=== PATIENT | female | born 1985 | race African-American/Black ===

== ENCOUNTER 2017-08-12 09:43 | Emergency (ER) | payer MEDICAID, OTHER ==
[~2017-08-12] VITALS: Ht 160 cm; Wt 90.7 kg
[2017-08-12 10:30] LABS: Basophils # (auto) 0.1 uL; Eosinophils # (auto) 0.1 uL; Eosinophils % (auto) 1.3 % (0.0-7.0); Hemoglobin 14.5 g/dL (12.2-16.2); Lymphocytes # (auto) 2.5 uL; Lymphocytes % (auto) 42.1 % (10.0-50.0); Mean Corpuscular Hemoglobin 28.5 pg (28.0-32.0); Mean Corpuscular Hgb Conc. 33.1 g/dL (32.0-36.0); Mean Corpuscular Volume 86.3 fL (80.0-100.0); Monocytes # (auto) 0.2 uL; Neutrophils # (auto) 3.1 uL; Neutrophils % (auto) 51.6 % (37.0-80.0); Nucleated Red Blood Cells % 0.1 %; Platelet Count (auto) 346 10^3/uL (140-450); Red Blood Cells 5.09 10^6/uL (4.0-5.20); Red Cell Distribution Width 14.6 % (11.8-14.3)
[2017-08-12 10:53] LABS: Albumin 3.9 g/dL (3.4-5.0); BUN/Creatinine Ratio 11.4; Bilirubin, Total 0.4 mg/dL (0.2-1.0); Calcium 9.1 mg/dL (8.5-10.1); Potassium 3.6 mmol/L (3.5-5.1); Total Protein 8.3 g/dL (6.4-8.2)
[2017-08-12 12:38] VITALS: BP 91/70
== END 2017-08-12 12:43 | disposition home or self-care (01) ==
LOC: ER 09:43
DX: R10.9 Unspecified abdominal pain (principal)
CPT/HCPCS: 36415; 76856; 80053; 85025

== ENCOUNTER 2018-02-05 10:21 | Emergency (ER) | payer MEDICAID, OTHER ==
[~2018-02-05] VITALS: Ht 162.6 cm; Wt 93.0 kg
[2018-02-05 10:55] VITALS: BP 146/95
== END 2018-02-05 13:13 | disposition home or self-care (01) ==
LOC: ER 10:21
DX: N61.0 Mastitis without abscess (principal)
CPT/HCPCS: 76642

== ENCOUNTER 2018-03-26 18:21 | Emergency (ER) | payer MEDICAID, OTHER ==
[~2018-03-26] VITALS: Ht 162.6 cm; Wt 90.7 kg
[2018-03-26 20:05] LABS: Basophils # (auto) 0 uL; Basophils % (auto) 0.2 % (0.0-2.0); Eosinophils # (auto) 0.1 uL; Eosinophils % (auto) 1.1 % (0.0-7.0); Hematocrit 41.7 % (36.0-46.0); Hemoglobin 13.3 g/dL (12.2-16.2); Lymphocytes # (auto) 3.7 uL; Lymphocytes % (auto) 42.5 % (10.0-50.0); Mean Corpuscular Hemoglobin 27.9 pg (28.0-32.0); Mean Corpuscular Hgb Conc. 31.9 g/dL (32.0-36.0); Mean Corpuscular Volume 87.4 fL (80.0-100.0); Monocytes # (auto) 0.5 uL; Neutrophils # (auto) 4.4 uL; Neutrophils % (auto) 50.2 % (37.0-80.0); Nucleated Red Blood Cells % 0.1 %; Platelet Count (auto) 327 10^3/uL (140-450); Red Blood Cells 4.77 10^6/uL (4.0-5.20); Red Cell Distribution Width 14.5 % (11.8-14.3); White Blood Cell 8.8 10^3/uL (4.4-10.8)
[2018-03-26 20:07] LABS: BUN/Creatinine Ratio 7.7; Calcium 8.8 mg/dL (8.5-10.1)
[2018-03-26 20:19] VITALS: BP 146/88
[2018-03-26] MEDS ORDERED: cefTRIAXone SOD 1,000 MG VL IM ONE (20:30)
== END 2018-03-26 21:07 | disposition home or self-care (01) ==
LOC: ER 18:21
DX: N64.52 Nipple discharge (principal)
CPT/HCPCS: 36415; 76604; 80048; 85025; 96372; 99284; J0696

== ENCOUNTER → 2020-08-23 | Emergency (ER) | payer MEDICAID, OTHER ==
[~2020-08-23] VITALS: Ht 160 cm; Wt 99.8 kg
[~2020-08-23] MED LIST: KETOROLAC TROMETH 30 MG/ML 1ML VIAL IV ONE; SODIUM CHLORIDE 0.9% 1,000 ML IV ONE
[2020-08-23 15:39] LABS: Basophils # (auto) 0.1 10 ^3/uL (0-0.2); Basophils % (auto) 0.9 % (0.0-2.0); Eosinophils # (auto) 0.1 10 ^3/uL (0-0.8); Eosinophils % (auto) 0.6 % (0.0-7.0); Hematocrit 40.8 % (36.0-46.0); Lymphocytes # (auto) 2.8 10 ^3/uL (0.4-5.4); Lymphocytes % (auto) 30.9 % (10.0-50.0); Mean Corpuscular Hemoglobin 30.1 pg (28.0-32.0); Mean Corpuscular Hgb Conc. 34.4 g/dL (32.0-36.0); Mean Corpuscular Volume 87.6 fL (80.0-100.0); Monocytes # (auto) 0.7 10 ^3/uL (0-1.3); Monocytes % (auto) 8.3 % (0.0-12.0); Neutrophils # (auto) 5.4 10 ^3/uL (1.6-8.6); Neutrophils % (auto) 59.3 % (37.0-80.0); Nucleated Red Blood Cells % 0.1 %; Platelet Count (auto) 304 10^3/uL (140-450); Red Blood Cells 4.65 10^6/uL (4.0-5.20); Red Cell Distribution Width 14.9 % (11.8-14.3); White Blood Cell 9.1 10^3/uL (4.4-10.8)
[2020-08-23 16:00] LABS: Albumin 3.9 g/dL (3.4-5.0); Potassium 3.9 mmol/L (3.5-5.1)
[2020-08-23 16:04] LABS: BUN/Creatinine Ratio 9.2; Bilirubin, Total 0.6 mg/dL (0.2-1.0); Total Protein 8.3 g/dL (6.4-8.2)
[2020-08-23 18:16] LABS: Urine Bacteria NONE SEEN /hpf (None Seen); Urine Blood Negative /uL (Negative); Urine Mucus FEW (None Seen); Urine Specific Gravity 1.024 (1.001-1.035); Urine WBC 2 /hpf (0 - 5)
[2020-08-23 18:30] VITALS: BP 136/84
== END | disposition home or self-care (01) ==
LOC: ER 15:21
DX: N83.202 Unspecified ovarian cyst, left side (principal)
CPT/HCPCS: 36415; 74176; 76830; 76856; 80053; 81001; 85025; 96361; 96374; 99285; J1885; J7030

== ENCOUNTER 2020-12-17 12:51 | Emergency (ER) | payer MEDICAID ==
[~2020-12-17] VITALS: Ht 162.6 cm; Wt 86.2 kg
[2020-12-17 13:06] VITALS: BP 132/78
[2020-12-17 13:57] LABS: Basophils # (auto) 0 10 ^3/uL (0-0.2); Basophils % (auto) 0.4 % (0.0-2.0); Eosinophils # (auto) 0.1 10 ^3/uL (0-0.8); Eosinophils % (auto) 0.6 % (0.0-7.0); Hematocrit 42.9 % (36.0-46.0); Lymphocytes # (auto) 2.9 10 ^3/uL (0.4-5.4); Lymphocytes % (auto) 36.4 % (10.0-50.0); Mean Corpuscular Hemoglobin 27.4 pg (28.0-32.0); Mean Corpuscular Hgb Conc. 32.6 g/dL (32.0-36.0); Mean Corpuscular Volume 84.3 fL (80.0-100.0); Monocytes # (auto) 0.7 10 ^3/uL (0-1.3); Monocytes % (auto) 8.8 % (0.0-12.0); Neutrophils # (auto) 4.2 10 ^3/uL (1.6-8.6); Neutrophils % (auto) 53.8 % (37.0-80.0); Red Blood Cells 5.09 10^6/uL (4.0-5.20); Red Cell Distribution Width 15.1 % (11.8-14.3); White Blood Cell 7.9 10^3/uL (4.4-10.8)
[2020-12-17 14:18] LABS: Potassium 3.2 mmol/L (3.5-5.1)
[2020-12-17 14:23] LABS: Albumin 3.9 g/dL (3.4-5.0); BUN/Creatinine Ratio 9.4; Calcium 9.6 mg/dL (8.5-10.1)
[2020-12-17 14:25] LABS: Bilirubin, Total 0.5 mg/dL (0.2-1.0); Total Protein 8.9 g/dL (6.4-8.2)
== END 2020-12-17 20:53 | disposition left against medical advice (07) ==
LOC: ER 12:51
DX: R10.32 Left lower quadrant pain (principal); R11.0 Nausea; Z53.21 Procedure and treatment not carried out due to patient leaving prior to being seen by health care provider
CPT/HCPCS: 36415; 80053; 84702; 85025

== ENCOUNTER 2022-01-31 17:07 | Emergency (ER) | payer MEDICAID ==
[~2022-01-31] VITALS: Ht 165.1 cm; Wt 81.0 kg
[2022-01-31 19:03] VITALS: BP 156/93
[2022-01-31] MEDS ORDERED: CEPH-510 PO (19:38)
== END 2022-01-31 19:50 | disposition home or self-care (01) ==
LOC: ER 17:07
DX: N63.41 Unspecified lump in right breast, subareolar (principal); Z98.51 Tubal ligation status
CPT/HCPCS: 76642

== ENCOUNTER 2022-12-15 12:29 | Inpatient (IN) | payer MEDICAID ==
[~2022-12-15] VITALS: Ht 162.6 cm; Wt 105.3 kg
[~2022-12-15 12:29] MED LIST changes: +CEPH-510 PO; -KETOROLAC TROMETH 30 MG/ML 1ML VIAL IV ONE; -SODIUM CHLORIDE 0.9% 1,000 ML IV ONE
[2022-12-15 13:30] LABS: Basophils # (auto) 0 10 ^3/uL (0-0.2); Basophils % (auto) 0.4 % (0.0-2.0); Eosinophils # (auto) 0.2 10 ^3/uL (0-0.8); Eosinophils % (auto) 1.4 % (0.0-7.0); Hematocrit 40.3 % (36.0-46.0); Lymphocytes # (auto) 2.7 10 ^3/uL (0.4-5.4); Lymphocytes % (auto) 23.7 % (10.0-50.0); Mean Corpuscular Hemoglobin 28.2 pg (28.0-32.0); Mean Corpuscular Hgb Conc. 32.3 g/dL (32.0-36.0); Mean Corpuscular Volume 87.3 fL (80.0-100.0); Monocytes # (auto) 0.7 10 ^3/uL (0-1.3); Neutrophils # (auto) 7.8 10 ^3/uL (1.6-8.6); Neutrophils % (auto) 68.5 % (37.0-80.0); Red Blood Cells 4.62 10^6/uL (4.0-5.20); Red Cell Distribution Width 13.7 % (11.8-14.3); White Blood Cell 11.4 10^3/uL (4.4-10.8)
[2022-12-15 13:44] LABS: Alanine Aminotransferase 17 U/L (7-40); Albumin 4.4 g/dL (3.2-4.8); Alkaline Phosphatase 97 U/L (46-116); Anion Gap 8.8 (5-15); Aspartate Aminotransferase 14 U/L (13-40); BUN/Creatinine Ratio 9.1 (10.0-20.0); Bilirubin, Total 0.9 mg/dL (0.2-1.0); Blood Urea Nitrogen 7 mg/dL (9-23); Calcium 9.6 mg/dL (8.7-10.4); Carbon Dioxide 26.2 mmol/L (20-30); Chloride 105 mmol/L (98-107); Glucose 96 mg/dL (74-106); Potassium 3.8 mmol/L (3.5-5.1); Sodium 140 mmol/L (136-145); Total Protein 7.4 g/dL (5.7-8.2)
[2022-12-15] MEDS ORDERED: SODIUM CHLORIDE 0.9% 1,000 ML IV ONE (15:00)
[2022-12-15] MEDS ORDERED: VANCOMYCIN 1GM/250ML 250 ML IV ONE (15:00)
[2022-12-15] MEDS ORDERED: ACETAMINOPHEN 325 MG TAB PO PRN (15:15)
[2022-12-15] MEDS ORDERED: ONDANSETRON HCL 4 MG/2 ML VIAL IV PRN (15:15)
[2022-12-15] MEDS ORDERED: DOCUSATE SOD 100 MG CAP PO PRN (15:15)
[2022-12-15] MEDS: HYDROcodone-ACET 5/325MG TAB PO PRN (16:33)
[2022-12-15 16:43] VITALS: PULSE 78; RESP 17; O2SAT 97
[2022-12-15] MEDS ORDERED: ERGO1CAP12 PO (21:17)
[2022-12-15 22:00] VITALS: BP 148/93; PULSE 87; RESP 20; TEMP 98.2; O2SAT 87
[2022-12-15] MEDS: CLINDAMYCIN 600MG IV 50 ML IV SCH (22:01)
[2022-12-15] MEDS: SODIUM CHLOR 0.9% PF (SALINE LOCK) 10ML VIAL/SYR IV SCH (22:02)
[2022-12-15] MEDS: MORPHINE SULFATE INJ 2 MG/ml SYRG IV PRN (22:02)
[2022-12-16] VITALS (7 sets, daily range): BP systolic 126–138; BP diastolic 84–93; PULSE 89–96; RESP 17–18; TEMP 98–99.2; O2SAT 96–100
[2022-12-16] MEDS: CLINDAMYCIN 600MG IV 50 ML IV SCH ×3 (06:01→20:50)
[2022-12-16] MEDS: SODIUM CHLOR 0.9% PF (SALINE LOCK) 10ML VIAL/SYR IV SCH ×3 (06:01→22:01)
[2022-12-16 06:38] LABS: Basophils # (auto) 0 10 ^3/uL (0-0.2); Basophils % (auto) 0.3 % (0.0-2.0); Eosinophils # (auto) 0.1 10 ^3/uL (0-0.8); Eosinophils % (auto) 1.2 % (0.0-7.0); Hematocrit 37.1 % (36.0-46.0); Hemoglobin 12.2 g/dL (12.2-16.2); Lymphocytes % (auto) 16.5 % (10.0-50.0); Mean Corpuscular Hemoglobin 28.7 pg (28.0-32.0); Mean Corpuscular Volume 86.9 fL (80.0-100.0); Monocytes # (auto) 0.7 10 ^3/uL (0-1.3); Monocytes % (auto) 5.7 % (0.0-12.0); Neutrophils # (auto) 9.5 10 ^3/uL (1.6-8.6); Neutrophils % (auto) 76.3 % (37.0-80.0); Red Blood Cells 4.26 10^6/uL (4.0-5.20); Red Cell Distribution Width 13.7 % (11.8-14.3); White Blood Cell 12.4 10^3/uL (4.4-10.8)
[2022-12-16 07:03] LABS: Alanine Aminotransferase 12 U/L (7-40); Albumin 4.1 g/dL (3.2-4.8); Alkaline Phosphatase 87 U/L (46-116); Anion Gap 8.9 (5-15); Aspartate Aminotransferase 9 U/L (13-40); BUN/Creatinine Ratio 8.6 (10.0-20.0); Bilirubin, Total 0.7 mg/dL (0.2-1.0); Blood Urea Nitrogen 6 mg/dL (9-23); Calcium 8.9 mg/dL (8.7-10.4); Carbon Dioxide 24.1 mmol/L (20-30); Chloride 105 mmol/L (98-107); Glucose 96 mg/dL (74-106); Potassium 3.4 mmol/L (3.5-5.1); Sodium 138 mmol/L (136-145); Total Protein 7.2 g/dL (5.7-8.2)
[2022-12-16] MEDS ORDERED: POTASSIUM CHL 20 Meq TABLET PO ONE (09:15)
[2022-12-16] MEDS: MORPHINE SULFATE INJ 2 MG/ml SYRG IV PRN ×3 (10:48→20:44)
[2022-12-16] MEDS: HYDROcodone-ACET 5/325MG TAB PO PRN (13:41)
[2022-12-16] MEDS ORDERED: TEMAZEPAM 15 MG CAP PO ONE (20:30)
[2022-12-17] VITALS (7 sets, daily range): BP systolic 108–141; BP diastolic 66–93; PULSE 86–96; RESP 17–20; TEMP 97.8–98.3; O2SAT 91–100
[2022-12-17] MEDS: CLINDAMYCIN 600MG IV 50 ML IV SCH ×3 (05:38→21:10)
[2022-12-17] MEDS: SODIUM CHLOR 0.9% PF (SALINE LOCK) 10ML VIAL/SYR IV SCH ×3 (05:40→21:14)
[2022-12-17] MEDS: HYDROcodone-ACET 5/325MG TAB PO PRN ×3 (08:08→22:02)
[2022-12-17 10:23] LABS: Basophils # (auto) 0 10 ^3/uL (0-0.2); Basophils % (auto) 0.3 % (0.0-2.0); Eosinophils # (auto) 0.1 10 ^3/uL (0-0.8); Eosinophils % (auto) 0.6 % (0.0-7.0); Hematocrit 38.1 % (36.0-46.0); Hemoglobin 12.5 g/dL (12.2-16.2); Mean Corpuscular Hemoglobin 28.4 pg (28.0-32.0); Mean Corpuscular Hgb Conc. 32.9 g/dL (32.0-36.0); Mean Corpuscular Volume 86.2 fL (80.0-100.0); Monocytes # (auto) 1.1 10 ^3/uL (0-1.3); Monocytes % (auto) 7.1 % (0.0-12.0); Neutrophils # (auto) 12.3 10 ^3/uL (1.6-8.6); Red Blood Cells 4.42 10^6/uL (4.0-5.20); Red Cell Distribution Width 13.9 % (11.8-14.3); White Blood Cell 15.5 10^3/uL (4.4-10.8)
[2022-12-17 10:46] LABS: Anion Gap 7.7 (5-15); Carbon Dioxide 27.3 mmol/L (20-30); Chloride 102 mmol/L (98-107); Potassium 3.6 mmol/L (3.5-5.1); Sodium 137 mmol/L (136-145)
[2022-12-17 10:47] LABS: Calcium 9.3 mg/dL (8.5-10.1)
[2022-12-17 10:52] LABS: Glucose 116 mg/dL (74-106)
[2022-12-17 10:53] LABS: BUN/Creatinine Ratio 6.2 (10.0-20.0); Blood Urea Nitrogen 5 mg/dL (9-23)
[2022-12-17 15:53] LABS: Urine Bacteria NONE SEEN /hpf (None Seen); Urine Blood Negative /uL (Negative); Urine Clarity HAZY (Clear); Urine Color Yellow (Yellow); Urine Protein, UAD TRACE (Negative); Urine Specific Gravity 1.018 (1.001-1.035); Urine Urobilinogen Normal (Negative); Urine WBC 36 /hpf (0 - 5)
[2022-12-18] VITALS (7 sets, daily range): BP systolic 120–152; BP diastolic 69–103; PULSE 79–94; RESP 17–19; TEMP 97.4–98.8; O2SAT 93–100
[2022-12-18] MEDS: CLINDAMYCIN 600MG IV 50 ML IV SCH ×3 (05:30→21:23)
[2022-12-18] MEDS: SODIUM CHLOR 0.9% PF (SALINE LOCK) 10ML VIAL/SYR IV SCH ×3 (05:30→21:25)
[2022-12-18 06:41] LABS: Basophils # (auto) 0.1 10 ^3/uL (0-0.2); Basophils % (auto) 0.4 % (0.0-2.0); Eosinophils # (auto) 0.2 10 ^3/uL (0-0.8); Eosinophils % (auto) 1.6 % (0.0-7.0); Hematocrit 37.5 % (36.0-46.0); Hemoglobin 12.4 g/dL (12.2-16.2); Lymphocytes # (auto) 2.9 10 ^3/uL (0.4-5.4); Lymphocytes % (auto) 21.4 % (10.0-50.0); Mean Corpuscular Hemoglobin 28.8 pg (28.0-32.0); Mean Corpuscular Hgb Conc. 33.1 g/dL (32.0-36.0); Mean Corpuscular Volume 86.8 fL (80.0-100.0); Monocytes % (auto) 7.4 % (0.0-12.0); Neutrophils # (auto) 9.4 10 ^3/uL (1.6-8.6); Neutrophils % (auto) 69.2 % (37.0-80.0); Red Blood Cells 4.32 10^6/uL (4.0-5.20); Red Cell Distribution Width 13.8 % (11.8-14.3); White Blood Cell 13.6 10^3/uL (4.4-10.8)
[2022-12-18 06:52] LABS: Chloride 104 mmol/L (98-107); Potassium 3.7 mmol/L (3.5-5.1); Sodium 139 mmol/L (136-145)
[2022-12-18 06:53] LABS: Anion Gap 7.8 (5-15); Calcium 9.3 mg/dL (8.5-10.1); Carbon Dioxide 27.2 mmol/L (20-30)
[2022-12-18 06:58] LABS: BUN/Creatinine Ratio 11.3 (10.0-20.0); Blood Urea Nitrogen 8 mg/dL (9-23); Glucose 102 mg/dL (74-106)
[2022-12-18] MEDS: cefTRIAXone 1GM/50ML D5W 50 ML IV SCH (10:14)
[2022-12-18] MEDS: HYDROcodone-ACET 5/325MG TAB PO PRN (12:51)
[2022-12-19 05:00] VITALS: BP_SYST 113; BP_SYST 118; BP_DIAS 59; BP_DIAS 71; PULSE 68; PULSE 88; RESP 18; TEMP 98.1; TEMP 98.5; O2SAT 95; O2SAT 96
[2022-12-19 05:55] LABS: Basophils # (auto) 0.1 10 ^3/uL (0-0.2); Basophils % (auto) 0.4 % (0.0-2.0); Eosinophils # (auto) 0.2 10 ^3/uL (0-0.8); Eosinophils % (auto) 1.8 % (0.0-7.0); Hematocrit 37.1 % (36.0-46.0); Hemoglobin 12.4 g/dL (12.2-16.2); Lymphocytes # (auto) 3.1 10 ^3/uL (0.4-5.4); Lymphocytes % (auto) 26.3 % (10.0-50.0); Mean Corpuscular Hemoglobin 28.6 pg (28.0-32.0); Mean Corpuscular Hgb Conc. 33.4 g/dL (32.0-36.0); Mean Corpuscular Volume 85.6 fL (80.0-100.0); Monocytes # (auto) 0.8 10 ^3/uL (0-1.3); Monocytes % (auto) 6.8 % (0.0-12.0); Neutrophils # (auto) 7.5 10 ^3/uL (1.6-8.6); Neutrophils % (auto) 64.7 % (37.0-80.0); Red Blood Cells 4.33 10^6/uL (4.0-5.20); Red Cell Distribution Width 13.6 % (11.8-14.3); White Blood Cell 11.7 10^3/uL (4.4-10.8)
[2022-12-19] MEDS: CLINDAMYCIN 600MG IV 50 ML IV SCH ×3 (05:58→21:25)
[2022-12-19] MEDS: SODIUM CHLOR 0.9% PF (SALINE LOCK) 10ML VIAL/SYR IV SCH ×3 (05:58→21:25)
[2022-12-19 06:25] LABS: Chloride 105 mmol/L (98-107); Potassium 3.5 mmol/L (3.5-5.1); Sodium 138 mmol/L (136-145)
[2022-12-19 06:26] LABS: Anion Gap 7.8 (5-15); Carbon Dioxide 25.2 mmol/L (20-30)
[2022-12-19 06:29] LABS: Calcium 9.3 mg/dL (8.7-10.4)
[2022-12-19 06:33] LABS: BUN/Creatinine Ratio 7.4 (10.0-20.0); Blood Urea Nitrogen 5 mg/dL (9-23); Glucose 92 mg/dL (74-106)
[2022-12-19 08:59] VITALS: BP 117/75; PULSE 94; RESP 19; TEMP 98.2; O2SAT 100
[2022-12-19] MEDS: cefTRIAXone 1GM/50ML D5W 50 ML IV SCH (09:11)
[2022-12-19] MEDS: HYDROcodone-ACET 5/325MG TAB PO PRN (12:28)
[2022-12-19 13:00] VITALS: BP 125/76; PULSE 81; RESP 19; TEMP 98; O2SAT 94
[2022-12-19 17:00] VITALS: BP 122/89; PULSE 66; RESP 18; TEMP 97.7; O2SAT 99
[2022-12-19 20:00] VITALS: PULSE 74; RESP 19; O2SAT 100
[2022-12-19 21:57] VITALS: BP 134/88; PULSE 79; RESP 14; TEMP 98; O2SAT 97
[2022-12-19] MEDS ORDERED: MELATONIN 5 MG TAB PO ONE (22:00)
[2022-12-20 05:00] VITALS: BP 113/70; PULSE 83; RESP 14; TEMP 98.1; O2SAT 98
[2022-12-20] MEDS: SODIUM CHLOR 0.9% PF (SALINE LOCK) 10ML VIAL/SYR IV SCH ×2 (05:15→14:51)
[2022-12-20] MEDS: CLINDAMYCIN 600MG IV 50 ML IV SCH ×2 (05:15→14:51)
[2022-12-20 08:00] VITALS: PULSE 81; RESP 19; O2SAT 100
[2022-12-20 08:30] LABS: Basophils # (auto) 0.1 10 ^3/uL (0-0.2); Eosinophils # (auto) 0.2 10 ^3/uL (0-0.8); Mean Corpuscular Hgb Conc. 32.2 g/dL (32.0-36.0); Monocytes # (auto) 0.8 10 ^3/uL (0-1.3); Neutrophils # (auto) 9.1 10 ^3/uL (1.6-8.6)
[2022-12-20 08:32] LABS: Basophils % (auto) 0.6 % (0.0-2.0); Eosinophils % (auto) 1.3 % (0.0-7.0); Hematocrit 38.8 % (36.0-46.0); Hemoglobin 12.5 g/dL (12.2-16.2); Lymphocytes # (auto) 3.1 10 ^3/uL (0.4-5.4); Lymphocytes % (auto) 23.4 % (10.0-50.0); Mean Corpuscular Hemoglobin 27.5 pg (28.0-32.0); Mean Corpuscular Volume 85.4 fL (80.0-100.0); Monocytes % (auto) 5.8 % (0.0-12.0); Neutrophils % (auto) 68.9 % (37.0-80.0); Red Blood Cells 4.54 10^6/uL (4.0-5.20); Red Cell Distribution Width 14.2 % (11.8-14.3); White Blood Cell 13.3 10^3/uL (4.4-10.8)
[2022-12-20] MEDS: cefTRIAXone 1GM/50ML D5W 50 ML IV SCH (08:38)
[2022-12-20 08:54] LABS: Chloride 105 mmol/L (98-107); Potassium 3.7 mmol/L (3.5-5.1); Sodium 137 mmol/L (136-145)
[2022-12-20 08:55] LABS: Calcium 9.1 mg/dL (8.5-10.1)
[2022-12-20 09:00] LABS: BUN/Creatinine Ratio 7.5 (10.0-20.0); Blood Urea Nitrogen 5 mg/dL (9-23); Glucose 102 mg/dL (74-106)
[2022-12-20 09:15] VITALS: BP 132/85; PULSE 81; RESP 19; TEMP 97.7; O2SAT 96
[2022-12-20 13:00] VITALS: BP 132/90; PULSE 89; RESP 20; TEMP 98; O2SAT 99
[2022-12-20] MEDS ORDERED: AMOX875T4 PO (15:26)
[2022-12-20 16:39] VITALS: BP 132/85; PULSE 81; RESP 19; TEMP 36.7; O2SAT 96
[2022-12-20 16:57] VITALS: BP 139/91; PULSE 92; RESP 19; TEMP 97.7; O2SAT 97
== END 2022-12-20 18:30 | disposition home or self-care (01) | DRG 385 ==
LOC: ER 12:29 → OVERFLOW 15:24 → WEST WING 20:59
PROVIDERS: ADMIT Internal Medicine
PROC: 0H9T3ZX Drainage of Right Breast, Percutaneous Approach, Diagnostic (ICD-10-PCS; principal; 2022-12-17)
DX: N61.1 Abscess of the breast and nipple (principal); N30.90 Cystitis, unspecified without hematuria; D72.829 Elevated white blood cell count, unspecified; E87.6 Hypokalemia; E66.9 Obesity, unspecified; Z68.39 Body mass index [BMI] 39.0-39.9, adult; Z87.891 Personal history of nicotine dependence; Z98.51 Tubal ligation status
CPT/HCPCS: 36415; 75989; 76642; 80048; 80053; 81001; 85025; 87086; 87205; 96365; G0378; J0696; J3490